=== PATIENT | male | born 1990 | race Asian ===

== ENCOUNTER → 2018-02-12 | Outpatient (CLI) | payer OTHER ==
[~2018-02-12] VITALS: Ht 177.8 cm; Wt 71.2 kg
[2018-02-12 14:50] VITALS: BP 117/71; PULSE 101; Ht 177.8 cm; Wt 71.2 kg
== END | disposition home or self-care (01) ==
LOC: C.NEUR 14:35
PROVIDERS: ATTEND Internal Medicine Pulmonary Disease
DX: R06.83 Snoring (principal); G47.10 Hypersomnia, unspecified; G47.30 Sleep apnea, unspecified

== ENCOUNTER → 2018-03-06 | Outpatient (CLI) | payer OTHER ==
--- NOTE | 2018-03-07 06:16 | PAP/PSG TECHNICIAN REPORT ---
[facility] [employer] Polysomnogram Report Study name: None Report date: 03/07/2018 Study date: 03/06/2018 Referring Physician: Keon King M.D. Name: ZULEYKA SOUSA Interpreting Physician: Keon King M.D. Date of : 1990 Farm[employer] Grain: Tesha Cummings RPSGT. Sex: Male Age: 28 Study Type: PSG Weight: 157 lbs 15 in Height: 28 years, Height 5' 10" Neck Circum: BMI: 22.52 Medications: NONE REPORTED Patient History 28 yr-old male here for a baseline study. He has a history of daytime sleepiness, witnessed apneas, and loud snoring. His Equinunk scale is 10. The test was started on room air. ETCO2 teasing was not utilized during this study. Room 3 Parameters Monitored NPSG: E1-M2, E2-M1, Fp1-M2, Fp2-M1, F3-M2, F4-M2, F4-M1, C3-M2, C4-M2, C4-M1, O1-M2, O2-M2, O2-M1, T3-M2, T4-M1, P3-M2, P4-M1, CHIN1, CHIN2, HR, EKG, Legs, PFLOW, SNOR, FLOW, CFLOW, Tidal Volume, THOR, ABDO, SpO2, PLTH, CPRESS, ETCO2 Wave, ETCO2, pH Sleep Architecture Sleep Stages Time at Lights Off 11:10:29 PM STAGES Time (min.) TST (%) Time at Lights On 5:31:29 AM Wake 117.5 -- Total Recording Time (TRT) 381.00 min. N1 38.0 14 Total Sleep Period (TSP) 367.0 min. N2 154.0 58 Total Sleep Time (TST) 263.5min. N3 46.0 17 Awake Time 117.5 min. REM 25.5 10 Wake after Sleep Onset 103.5 min. Sleep Efficiency (SE) 69 % Sleep Onset Latency (CARLOS) 14.0 min. Number of Stage 1 Shifts None Awakenings 25 Stage Changes 106 Number of REM periods 3 REM 25.5 10 REM Latency 155.0 min. NREM 238.0 90 Body Position Analysis Supine Right Left Side Prone Vertical Total Sleep Time (min.) 101.1 140.5 40.7 181.13 22.9 0.0 Total Sleep Time (%) 31% 53% 15% 69 0% N/A% Total Sleep Time REM (min.) 18.0 0.0 7.5 None 0.0 0.0 Total Sleep Time NREM (min.) 64.4 140.5 33.2 None 0.0 0.0 Intermittent Wake (min.) 18.7 16.8 59.1 None 22.9 0.0 Total Sleep Period (%) 27% None None None None None Arousals Myoclonus (PLM) * Events Count Index Events Count Index Spontaneous 37 8 Events Awake (PLMW) 115 58.7 Respiratory 20 4.6 Events Asleep w/ Arousal (PLMA) 11 2.5 PLM 11 3 Events Asleep w/o Arousal (PLMS) 70 15.9 Snoring 9 2 Total Asleep 81 18.4 Total 78 18 Total 196 31 Respiratory Analysis * CA OA MA CH H RERA Total Count 1 4 0 0 12 8 17 Index 0.2 0.9 0.0 0 2.7 2 5.5 Mean Duration 12.6 17.6 0.0 0.00 26.9 18.6 23.0 Longest Duration 12.6 20.7 0.0 0.00 0.0 22.5 39.5 Respiratory Event Summary Total Supine ~Supine Right Left Prone REM NREM Apneas Count 5 5 0 0 0 N/A 0 5 Index 1.1 4 0 0.0 0.0 N/A 0 1 Hypopneas (4% Desat) Count 12 12 0 0 0 N/A 0 12 Index 2.7 8.7 0 0.0 0.0 N/A 0.0 3.0 Apneas & All Hypopneas Count 17 17 0 0 0 N/A 0 17 Index 3.9 12 0 0 0 N/A 0.0 4.3 Respiratory Events (Sr. Consultant+All Hyp+RERA) Count 17 23 1 1 0 N/A 0 17 Index 5.5 17 0 0.4 0.0 N/A 0.0 6.1 Respiratory Related Arousal Count 20 23 1 1 0 N/A 0 20 Index 4.6 14 0 0 0 N/A 0 5 Snoring Analysis Supine Right Left Prone REM NREM Total Snore duration 13.2 min Snores count 159 280 33 N/A 8 464 472 Snore mean duration 1.7 Sec Snores index 116 120 49 N/A 18.8 117.0 107.5 TST with snoring (%) 5.0% Desaturation Event Summary: Minimum %SpO2 Event Count Mean/Min/Max Duration(sec.) Desaturation Index % Time In Bed > 90 18 32.5 / 12.5 / 55.5 2.9 98.7 86 - 90 1 32.5 / 32.5 / 32.5 14.4 1.1 81 - 85 0 N/A 0.0 0.2 76 - 80 0 N/A 0.0 0.0 71 - 75 0 N/A 0.0 0.0 66 - 70 0 N/A 0.0 0.0 61 - 65 0 N/A 0.0 0.0 56 - 60 0 N/A 0.0 0.0 51 - 55 0 N/A 0.0 0.0 < 50 0 N/A 0.0 0.0 Total REM NREM Awake <50% 0.0 min. 0.0 min. 0.0 min. 0.0 min. 51 - 60% 0.0 min. 0.0 min. 0.0 min. 0.0 min. 61 - 70% 0.0 min. 0.0 min. 0.0 min. 0.0 min. 71 - 80% 0.0 min. 0.0 min. 0.0 min. 0.0 min. 81 - 90% 4.9 min. 0.0 min. 4.9 min. 0.0 min. 91 - 100% 370.3 min. 24.5 min. 232.9 min. 112.9 min. Average 94 94 93 94 Minimum SpO2 84 92 84 91 Desaturation Event Index 2.8 0.0 4.5 0.5 # Desat. Events below 89% 8 N/A 8 N/A Time(%) with Saturation below 89% 0.6 0.0 0.6 0.0 Time(min.) with Saturation below 89% 2.3 0.0 2.3 0.0 Time (mins) REM (mins) NREM (mins) % of TST SpO2 Below 90% 14 N/A N14 1.3 SpO2 Below 88% 5 0 0 1 Heart Rate Analysis Min (bpm) Max (bpm) Average (bpm) Awake 51 99 72 NREM 44 96 60 REM 50 75 59 Overall 44 96 60 Supplemental O2 Values Minimum O2 level: None Value Start Time End Time [employer]worker [employer] Comments Mr. Sousa slept in the right, left, supine and prone positions. Cardiac arrhythmias were noted for much of the study (please refer to the print outs). No bruxism noted. Snoring was noted and scored as a 3-4 on a scale of 1 through 5. (0=no snoring, 5=snoring loud enough to be heard through a closed door or down the [address] way). He awoke to use the restroom one time during the night. Mr. Sousa stated that he slept about the same as usual. The final report will be interpreted and signed by a sleep physician. The completed physician report will then be placed in the patient medical record. Therapy (cm H2O) 0 TIB (min.) 381.0 TST (min.) 263.5 Sleep Onset (min.) 14.0 REM Onset From Sleep (min.) 155.0 Sleep Efficiency % 69 Wakefulness (%) 31 Wakefulness (min.) 117.5 NREM 1 (%) 14 NREM 1 (min.) 38.0 NREM 2 (%) 58 NREM 2 (min.) 154.0 NREM 3 (%) 17 NREM 3 (min.) 46.0 REM (%) 10 REM (min.) 25.5 # Arousals 78 Arousal Index 18 # Snore 472 Snore Index 107.5 AHI 3.9 AHI Supine 12 AHI Non-Supine 0 NREM AHI 4.3 REM AHI 0.0 RDI 5.5 # Obstructive Apnea 4 # Central Apnea 1 # Mixed Apnea 0 # Hypopneas 12 RERAs 8 Total Respiratory Events 24 Time Below SpO2 89% (min.) 2.3 Mean NREM SpO2 (%) 93 Mean REM SpO2 (%) 94 Mean Sleep SpO2 (%) 93 Min NREM SpO2 (%) 84 Min REM SpO2 (%) 92 Position Supine (min.) 101.1 Position Non-supine (min.) 181.1 LM Index Sleep 18.4 LM Index NREM 19.9 LM Index REM 4.7 Mean Heart Rate (bpm) 60 Min Heart Rate (bpm) 44
--- NOTE | 2018-03-09 17:03 | POLYSOMNOGRAPH REPORT ---
CLINICAL DATA: A 28-year-old male with BMI of 22.5 referred by myself and Dr. Marshall Vela for evaluation of daytime sleepiness, witnessed apnea, and loud snoring. His Goltry sleepiness score is 10/24. SLEEP ARCHITECTURE: Total sleep period was 367 minutes. Total sleep time was 263.5 minutes divided between 238 minutes of non-REM sleep and 25.5 minutes of REM sleep. Sleep onset latency was 14 minutes. REM latency was 155 minutes. Sleep efficiency was 69%. Wake after sleep onset was elevated at 103.5 minutes. Sleep consisted of stage N1 14%, stage N2 58%, stage N3 17%, and REM 10%. AROUSAL DATA: 78 arousals were recorded for an index of 18 per hour. 37 were spontaneous. PLM DATA: 81 limb movements during sleep noted for an index of 18.4 per hour with an arousal index of 2.5 per hour. RESPIRATORY DATA: There was no evidence of clinically significant sleep apnea/hypopnea seen. The AHI was 3.9. The RDI was 5. There was 1 central and 4 obstructive apneic episodes. The longest duration of apnea was 20.7 seconds. There were 12 hypopneic episodes with a mean duration of 26.9 seconds. There were 8 RERAs. The longest RERA was 22.5 seconds. OXIMETRY DATA: Transient hypoxemia was seen. Oxygen ronn was 84%. Mean saturation was 94%. Time below 88% was 5 minutes. EKG: Heart rates ranged from 44-96 beats per minute. Occasional aberrantly conducted PACs were seen. VETERANS' COORDINATOR'S COMMENTS: The patient slept in the right, left, supine, and prone position. Snoring was moderate, rated 3-4 on a scale of 1-5. IMPRESSION: No evidence of clinically significant sleep apnea/hypopnea with an AHI of 3.9. There may be some upper airway resistance since his RDI was 5. RECOMMENDATIONS: The patient should continue to practice good sleep hygiene. Treatment for nasal obstruction may be of benefit. Clinical correlation is needed. JUAN PABLO
== END | disposition home or self-care (01) ==
LOC: C.NEUR 21:00
PROVIDERS: ATTEND Internal Medicine Pulmonary Disease
DX: G47.10 Hypersomnia, unspecified (principal); R06.83 Snoring; G47.30 Sleep apnea, unspecified

== ENCOUNTER → 2018-03-12 | Outpatient (CLI) | payer OTHER ==
[~2018-03-12] VITALS: Ht 177.8 cm; Wt 69.9 kg
[2018-03-12 14:40] VITALS: BP 121/78; PULSE 80; Ht 177.8 cm; Wt 69.9 kg
== END | disposition home or self-care (01) ==
LOC: C.NEUR 13:45
PROVIDERS: ATTEND Internal Medicine Pulmonary Disease
DX: R06.83 Snoring (principal); J34.89 Other specified disorders of nose and nasal sinuses

== ENCOUNTER 2018-03-23 22:23 | Emergency (ER) | payer OTHER ==
[~2018-03-23] VITALS: Ht 177.8 cm; Wt 80.0 kg
[2018-03-23 22:25] VITALS: TEMP 36.8; Ht 177.8 cm; Wt 80.0 kg
[2018-03-23] MEDS ORDERED: ACETAMINOPHEN 500 MG TAB PO STA (22:56)
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
[2018-03-24] MEDS ORDERED: CYCL10TA6 PO (00:25)
[2018-03-24 00:33] VITALS: BP 122/68; PULSE 68; O2SAT 98
--- NOTE | 2018-03-24 07:05 | DIAGNOSTIC IMAGING REPORT ---
LUMBAR SPINE WITHOUT CT DOSE: 519.89 mGy.cm HISTORY: Pain. Radiculopathy. low back pain into L hip TECHNIQUE: Multiaxial CT images of the lumbar spine were performed and reformatted in the sagittal and coronal plane without the use of contrast. A dose lowering technique was utilized adhering to the principles of ALARA. COMPARISON: None. FINDINGS: No fractures. No subluxation. Paraspinal soft tissues are unremarkable. IMPRESSION: No fractures within the lumbar spine. The above report was generated using voice recognition software. It may contain grammatical, syntax or spelling errors. Electronically signed by: Clive Donald M.D. 03/24/2018 7:04 AM Dictated Date/Time: 03/24/2018 7:03 AM
== END 2018-03-24 00:33 | disposition home or self-care (01) ==
LOC: C.EDB 22:23 → C.EDC 03-24 00:33
DX: M54.5 Low back pain (principal); V89.2XXA Person injured in unspecified motor-vehicle accident, traffic, initial encounter; F17.210 Nicotine dependence, cigarettes, uncomplicated